=== PATIENT | male | born 1975 ===

== ENCOUNTER 2017-06-15 05:30 | Day surgery (SDC) | payer OTHER ==
[~2017-06-15 05:30] MED LIST: CLONAZEPAM2 MG PO
[2017-06-15] MEDS ORDERED: PERCOCET 5-3251 EACH PO (11:46)
== END 2017-06-15 14:40 | disposition home or self-care (01) ==
LOC: CIR.AMB 05:30
DX: E04.1 Nontoxic single thyroid nodule (principal); E06.3 Autoimmune thyroiditis; D35.1 Benign neoplasm of parathyroid gland; D36.0 Benign neoplasm of lymph nodes